=== PATIENT | female | born 1985 | race African-American/Black ===

== ENCOUNTER 2017-08-26 18:33 | Emergency (ER) | payer SELFPAY ==
--- NOTE | 2017-08-26 19:09 | NUR ---
PATIENT LEFT WITHOUT BEING SEEN BY DR. CLEANING. NO FURTHER CARE PROVIDED FOR PATIENT.
== END 2017-08-26 19:09 | disposition left against medical advice (07) ==
LOC: MED 18:33
DX: Z53.21 Procedure and treatment not carried out due to patient leaving prior to being seen by health care provider (principal)